=== PATIENT | female | born 1950 ===

== ENCOUNTER 2018-04-02 10:08 | Outpatient (CLI) | payer OTHER | END 2018-04-02 10:11 | disposition home or self-care (01) | LOC: LAB 10:08 | DX: D64.89 Other specified anemias (principal); E11.9 Type 2 diabetes mellitus without complications; E78.2 Mixed hyperlipidemia; E03.8 Other specified hypothyroidism; E55.9 Vitamin D deficiency, unspecified; K92.1 Melena; N30.80 Other cystitis without hematuria ==

== ENCOUNTER 2018-11-04 12:09 | Outpatient (CLI) | payer OTHER | END 2018-11-04 12:20 | disposition home or self-care (01) | LOC: LAB 12:09 | DX: D64.89 Other specified anemias (principal); E11.9 Type 2 diabetes mellitus without complications; E78.2 Mixed hyperlipidemia; E03.8 Other specified hypothyroidism; N39.0 Urinary tract infection, site not specified; Z12.11 Encounter for screening for malignant neoplasm of colon; E55.9 Vitamin D deficiency, unspecified; J00 Acute nasopharyngitis [common cold] ==

== ENCOUNTER → 2018-11-15 | Outpatient (CLI) | payer OTHER | END | disposition home or self-care (01) | LOC: NUCLEAR 11:00 | DX: M81.0 Age-related osteoporosis without current pathological fracture (principal) ==

== ENCOUNTER 2019-02-21 12:49 | Outpatient (CLI) | payer OTHER | END 2019-02-21 12:58 | disposition home or self-care (01) | LOC: LAB 12:49 | DX: E78.2 Mixed hyperlipidemia (principal) ==

== ENCOUNTER 2019-05-05 13:16 | Outpatient (CLI) | payer OTHER | END 2019-05-05 13:20 | disposition home or self-care (01) | LOC: LAB 13:16 | DX: J45.41 Moderate persistent asthma with (acute) exacerbation (principal); J30.1 Allergic rhinitis due to pollen; R06.02 Shortness of breath ==

== ENCOUNTER → 2020-12-17 15:00 | Outpatient (CLI) | payer OTHER | END | disposition home or self-care (01) | LOC: PPH VACUNA 15:00 | PROVIDERS: ATTEND Emergency Medicine Pediatric Emergency Medicine | DX: Z23 Encounter for immunization (principal) ==

== ENCOUNTER 2021-09-25 08:00 | Outpatient (CLI) | payer OTHER | END 2021-09-25 08:30 | disposition home or self-care (01) | LOC: PPH VACUNA 08:00 | PROVIDERS: ATTEND Emergency Medicine Pediatric Emergency Medicine | DX: Z23 Encounter for immunization (principal) ==

== ENCOUNTER 2021-10-09 11:45 | Outpatient (CLI) | payer OTHER | END 2021-10-09 11:46 | disposition home or self-care (01) | LOC: LAB 11:45 | PROVIDERS: ATTEND Internal Medicine | DX: E11.29 Type 2 diabetes mellitus with other diabetic kidney complication (principal); D64.89 Other specified anemias; E78.2 Mixed hyperlipidemia; E03.8 Other specified hypothyroidism; N39.0 Urinary tract infection, site not specified; Z12.11 Encounter for screening for malignant neoplasm of colon; E55.9 Vitamin D deficiency, unspecified ==

== ENCOUNTER 2022-09-02 10:29 | Outpatient (CLI) | payer OTHER | END 2022-09-02 14:46 | disposition home or self-care (01) | LOC: LAB 10:29 | DX: I11.0 Hypertensive heart disease with heart failure (principal); I50.32 Chronic diastolic (congestive) heart failure; R06.02 Shortness of breath; E78.5 Hyperlipidemia, unspecified; J45.909 Unspecified asthma, uncomplicated ==